=== PATIENT | female | born 1980 | race Caucasian/White ===

== ENCOUNTER 2024-12-02 00:18 | Day surgery (SDC) | payer OTHER, SELFPAY ==
[2024-11-24 11:39] VITALS: BMI 25.9
--- OUTSIDE RECORDS SUMMARY | 2024-12-02 00:20 | XMS_ITS | Clinical Summary ---
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 No 08/19/2023 Comments No Sex and Gender Information Value Date Recorded Sex Assigned at Not on file Legal Sex Female 2:44 PM CDT Gender Identity Not on file Sexual Orientation Not on file Last Filed Vital Signs Vital Sign Reading Time Taken Comments Blood Pressure 136/78 08/19/2023 9:50 AM WINTER SPORTS MANAGER Pulse 56 08/19/2023 9:55 AM WINTER SPORTS MANAGER Temperature 36.4 C (97.6 F) 08/19/2023 9:17 AM WINTER SPORTS MANAGER Respiratory Rate 14 08/19/2023 9:55 AM WINTER SPORTS MANAGER Oxygen Saturation 99% 08/19/2023 9:55 AM WINTER SPORTS MANAGER Inhaled Oxygen Concentration - - Weight 97.5 kg (215 lb) 08/19/2023 6:55 AM WINTER SPORTS MANAGER Height 172.7 cm (5' 8) 08/19/2023 6:55 AM WINTER SPORTS MANAGER Body Mass Index 32.69 08/19/2023 6:55 AM WINTER SPORTS MANAGER Plan of Treatment Health Maintenance Due Date Last Done Comments DTAP/TDAP/TD VACCINES (1 - Tdap) 1997 HEPATITIS B VACCINES (1 of 3 - 19+ 3-dose series) 1997 HPV/Cotest (21-29) 1999 CERVICAL CANCER SCREENING 01/02/2008 HPV/Cotest (30-65) 01/02/2008 PAP SMEAR 01/02/2008 COLORECTAL SCREENING 2023 Colorectal Cancer Screening 2023 FIT-DNA Q 3 years 2023 FIT/FOBT Q 1 year 2023 Flex Sig/CT Colonography Q 5 years 2023 INFLUENZA VACCINE (#1) 2024 BREAST CANCER SCREENING 06/14/2024 06/14/20 23, 05/06/2023 HPV VACCINES Aged Out No longer eligi ble based on patient's age to complete this topic Procedures Procedure Name Priority Date/Time Associated Diagnosis Comments MAMMO DIAG UNI RIGHT 3D DOLLY W OR WO CAD Stat 06/14/2023 8:09 AM WINTER SPORTS MANAGER Abnormal mammogram from Last 3 Months or Most Recently Relevant to Health Maintenance Results * (ABNORMAL) MAMMO DIAG UNI RIGHT 3D DOLLY W OR WO CAD (06/14/2023 8:09 AM WINTER SPORTS MANAGER) Anatomical Region Laterality Modality Breast Right Mammography 06/14/2023 8:09 AM WINTER SPORTS MANAGER Impressions 06/14/2023 3:44 PM WINTER SPORTS MANAGER IMPRESSION: 1. Suspicious right breast mass, 10:00 position 4 cm from nipple, which corresponds to architectural distortion mammographically. Ultrasound-guided core needle biopsy is recommended. Differential may include complex sclerosing lesion/radial scar however malignancy is not excluded. OVERALL FINAL ASSESSMENT: Suspicious. BI-RADS CATEGORY 4B: Moderate suspicion for malignancy. Patient was notified of findings and recommendations at time of exam. Patient scheduled for biopsy with nurse navigation prior to leaving department. DICTATION LOCATION: [facility] Narrative 06/14/2023 3:44 PM WINTER SPORTS MANAGER UNILATERAL DIGITAL DIAGNOSTIC RIGHT MAMMOGRAM WITH TOMOSYNTHESIS UTILIZING COMPUTER AIDED DETECTION LIMITED DIAGNOSTIC RIGHT BREAST ULTRASOUND EXAM DATE: 06/14/2023 8:09 AM TECHNIQUE: Right Full field ML with spot CC and MLO standard and tomosynthesis views with 3D reformats were obtained. Limited diagnostic right breast ultrasound Low Dose full field Digital Breast tomosynthesis examination was performed with 2D and 3D acquisitions. Examination is read in conjunction with computer aided detection. INDICATION: Abnormal screening. CLINICAL HISTORY: 43-year-old asymptomatic female. Patient was recalled from screening mammogram for further evaluation of architectural distortion in the upper outer right breast. COMPARISON: Recall from 05/06/2023 baseline mammogram. BREAST COMPOSITION: There are scattered areas of fibroglandular density. FINDINGS: Right mammogram: Additional images show persistence of architectural distortion in the upper outer quadrant of right breast. This spans approximately 1.7 cm mammographically, and is located middle depth, approximately 3-4 cm from the nipple. No concerning microcalcifications or suspicious findings elsewhere. CAD was used in interpretation. Right ultrasound: Sonographic images are targeted in the upper-outer quadrant. At the 10:00 position 4 cm from nipple there is an irregular hypoechoic antiparallel mass with indistinct margins and shadowing. This measures 0.6 x 1.1 x 0.5 cm. There is no significant vascularity. Sonographic images in the right axilla showed no pathologic adenopathy. Procedure Note Teodora Serrato MD - 06/14/2023 UNILATERAL DIGITAL DIAGNOSTIC RIGHT MAMMOGRAM WITH TOMOSYNTHESIS UTILIZING COMPUTER AIDED DETECTION LIMITED DIAGNOSTIC RIGHT BREAST ULTRASOUND EXAM DATE: 06/14/2023 8:09 AM TECHNIQUE: Right Full field ML with spot CC and MLO standard and tomosynthesis views with 3D reformats were obtained. Limited diagnostic right breast ultrasound Low Dose full field Digital Breast tomosynthesis examination was performed with 2D and 3D acquisitions. Examination is read in conjunction with computer aided detection. INDICATION: Abnormal screening. CLINICAL HISTORY: 43-year-old asymptomatic female. Patient was recalled from screening mammogram for further evaluation of architectural distortion in the upper outer right breast. COMPARISON: Recall from 05/06/2023 baseline mammogram. BREAST COMPOSITION: There are scattered areas of fibroglandular density. FINDINGS: Right mammogram: Additional images show persistence of architectural distortion in the upper outer quadrant of right breast. This spans approximately 1.7 cm mammographically, and is located middle depth, approximately 3-4 cm from the nipple. No concerning microcalcifications or suspicious findings elsewhere. CAD was used in interpretation. Right ultrasound: Sonographic images are targeted in the upper-outer quadrant. At the 10:00 position 4 cm from nipple there is an irregular hypoechoic antiparallel mass with indistinct margins and shadowing. This measures 0.6 x 1.1 x 0.5 cm. There is no significant vascularity. Sonographic images in the right axilla showed no pathologic adenopathy. IMPRESSION: 1. Suspicious right breast mass, 10:00 position 4 cm from nipple, which corresponds to architectural distortion mammographically. Ultrasound-guided core needle biopsy is recommended. Differential may include complex sclerosing lesion/radial scar however malignancy is not excluded. OVERALL FINAL ASSESSMENT: Suspicious. BI-RADS CATEGORY 4B: Moderate suspicion for malignancy. Patient was notified of findings and recommendations at time of exam. Patient scheduled for biopsy with nurse navigation prior to leaving department. DICTATION LOCATION: [facility] Makenna Santoyo FUNDING SPECIALIST MAMMO ORDERABLES Final Resul t from Last 3 Months or Most Recently Relevant to Health Maintenance Insurance [employer] [id number]
--- OUTSIDE RECORDS SUMMARY | 2024-12-02 00:20 | XMS_ITS | Clinical Summary ---
Author Organization [facility] Address [address] [place] [address] Care Team Providers Care Blue Line Operator Name Role Phone Thomas Christian Magda Unavailable Unavailable Source Comments [facility],non-owned Affiliates and Associated Physician Practices is amultiple site organization consisting of ambulatory clinics and hospital sitesin [place], [place], [place] and [place]. This disclosure is being madepursuant to the Care Everywhere program and may not contain all information available regarding this patient. Last updated 18.[facility] Active Problems Patient Care Coordination No te Formatting of this note migh t be different from the original. Order is not for additional testing Negative [id number] Problem Noted Date Diagnosed Date Advanced maternal age in 11/06/2013 Placenta previa without hemorrhage, antepartum 0 11/06/2013 Supervision of other high-risk 014 Overview (05/15/2015): Social History Tobacco Use Types Packs/Day Years Used Date Smoking Tobacco: Never Assessed Comments No Sex and Gender Information Value Date Recorded Sex Assigned at Not on file Legal Sex Female 6:31 AM PAVING CONTRACTOR Gender Identity Not on file Sexual Orientation Not on file Plan of Treatment Health Maintenance Due Date Last Done Comments COLOGUARD (AGES 45-75) - COL ON CA SCREENING 1978 COLON MONITORING 1978 COLONOSCOPY - COLON CA SCREENING 1978 CT COLONOGRAPHY - COLON CA SCREENING 1978 Colorectal Cancer Screening 1978 FIT - COLON CA SCREENING 1978 FLEX SIG - COLON CA SCREENING 1978 LIPID TESTING 1978 MAMMOGRAM 1978 HIV SCREENING 1993 HEPATITIS C SCREENING 12/28/1995 DTAP/TDAP/TD VACCINES (1 - Tdap) 1997 HEPATITIS B VACCINE (1 of 3 - 19+ 3-dose series) 1997 COVID-19 VACCINE (1 - 2023-2 5 season) 2024 DEPRESSION SCREENING 07/08/2024 INFLUENZA VACCINE (Season Ended) 2025 ZOSTER VACCINE (1 of 2) 01/02/2028 HIB VACCINE Aged Out No longer eligi ble based on patient's age to complete this topic HPV VACCINE Aged Out No longer eligi ble based on patient's age to complete this topic MENINGOCOCCAL (Group B) VACC INE SHARED DECISION-MAKING Aged Out No longer eligibl e based on patient's age to complete this topic MENINGOCOCCAL GROUPS A/C/Y/W VACCINE Aged Out No longer eligible b ased on patient's age to complete this topic PNEUMOCOCCAL VACCINE Aged Out No long er eligible based on patient's age to complete this topic Insurance [employer] Care Teams Blue Line Operator Relationship Specialty Start Date End Date Thomas Christian 11/09/13
[2024-12-02 11:40] VITALS: BP 144/94; PULSE 68; RESP 18; TEMP 36.7; O2SAT 100
[2024-12-02 11:43] LABS: BEDSIDEPREGUCG Negative (Negative)
[2024-12-02] MEDS: LACTATED RINGERS 1,000 ML 150 ML IV CONT (11:50)
--- NOTE | 2024-12-02 12:31 | P.PNAN_ITS ---
Anes - Initial Pre Proc Eval Procedure: Operation Date: 12/02/24 13:00 Proposed Procedures p Colonoscopy - Dre Nur MD Date/Time: 12/02/24 12:31 Surgeon: Dre Nur MD Pre Op Diagnosis: Other fecal abnormalities Patient Data Age: 44 Gender: F Height: 1.73 m Weight: 87.4 kg Last Vital Signs Temp 98.0 F 12/02/24 11:40 Pulse 68 12/02/24 11:40 Resp 18 12/02/24 11:40 BP 144/94 H 12/02/24 11:40 Pulse Ox 100 12/02/24 11:40 O2 Del Method Room Air 12/02/24 11:40 Allergies Allergy/AdvReac Type Severity Reaction Status Date / Time zolpidem Allergy Unknown Rash Verified 11/24/24 11:39 Home Medications ?Medication ?Instructions ?Recorded ?Confirmed ?Type No Home Medications 11/24/24 11/24/24 History Laboratory Tests 12/02/24 11:41 POC Urine HCG, Qual Negative (Negative) Patient hx anesthesia problems: none Family hx anesthesia problems: none Results Review: All pre-operative results and documents have been reviewed as part of the pre- operative evaluation. [facility] Family History Family History Other Diabetes mellitus Family history of cardiovascular disease Family history of malignant neoplasm Social History Social History Smoking status: Never smoker Alcohol intake: current Substance use type: does not use Living arrangements: with family Spiritual care concerns: No Anes - Eval Final PreProcedure Day of Procedure 12/02/24 12:31 Patient weight: overweight Lungs: normal air movement Airway: Mallampati scale class II Neurological: alert and oriented Last oral intake: >/= 8 hours ASA classification: I Emergent: no Anesthetic plan: proceed Anesthesia type and monitoring: general GIVS and standard monitoring Results Review: All pre-operative results and documents have been reviewed as part of the pre- operative evaluation. Healthy, BMI 29. Pt active w walking, no cp or sob. Informed Consent: The patient's anesthetic plan and its attendant risks and benefits were discussed with the patient/family/POA. Questions were solicited and answers provided to the satisfaction of the patient/family/POA.
--- NOTE | 2024-12-02 12:50 | PM.HPGS ---
History of Present Illness History of Present Illness Consent: Risks, benefits, and alternatives have been discussed and questions answered. Patient agrees to proceed with procedure. Chief complaint: cologuard Narrative: Yanci Allen is a 44 year old female here for first screening colonoscopy, had + cologuard Review of Systems Review of Systems: All systems reviewed & are unremarkable except as noted in HPI and below PMFSH Past Medical History Medical History (Updated 12/02/24 @ 12:52 by Dre Nur MD) Positive colorectal cancer screening using Cologuard test Family History Family History Other Diabetes mellitus Family history of cardiovascular disease Family history of malignant neoplasm Social History Social History Smoking status: Never smoker Alcohol intake: current Substance use type: does not use Living arrangements: with family Spiritual care concerns: No Meds Home Medications and Allergies Home Medications ?Medication ?Instructions ?Recorded ?Confirmed ?Type No Home Medications 11/24/24 11/24/24 History Allergies Allergy/AdvReac Type Severity Reaction Status Date / Time zolpidem Allergy Unknown Rash Verified 11/24/24 11:39 Vital Signs Vital Signs - 24 hr 12/02/24 11:40 Temperature 98.0 F Pulse Rate 68 Respiratory Rate 18 Blood Pressure 144/94 H Pulse Oximetry 100 Oxygen Delivery Room Air Exam Const: General: comfortable and no acute distress HENMT: Face/Nose/Sinus: Normal nares present Eyes: General: appearance normal, both eyes and all related structures Neck: Neck: no JVD Resp: Auscultation: clear to auscultation bilaterally Cardio: Rate: regular rate Rhythm: regular rhythm GI: Inspection: non-distended GI Palp: Yes Soft to palpation Skin: General skin exam: normal color Neuro: General: gait normal Speech: normal speech Extrem: General: normal to inspection Psych: Mental Status: mental status grossly normal Assessment and Plan Assessment and plan (1) Positive colorectal cancer screening using Cologuard test: Code(s): R19.5 - Other fecal abnormalities Status: Acute Assessment and Plan: colonoscopy
[2024-12-02 13:07] VITALS: BP 130/76; PULSE 84; RESP 19; O2SAT 100
[2024-12-02 13:17] VITALS: BP 121/87; PULSE 70; RESP 16; O2SAT 100
[2024-12-02 13:27] VITALS: BP 123/85; PULSE 66; RESP 19; O2SAT 100
== END 2024-12-02 13:30 | disposition home or self-care (01) ==
PROVIDERS: Anesthesiology; PCP Pediatrics; Referring Provider Nurse Practitioner Family; Visit Provider Internal Medicine Gastroenterology
PROC: 0DJD8ZZ Inspection of Lower Intestinal Tract, Via Natural or Artificial Opening Endoscopic (ICD-10-PCS; CPT 45378; principal; 2024-12-02 13:00)
DX: K64.8 Other hemorrhoids (principal); Z80.9 Family history of malignant neoplasm, unspecified; Z82.49 Family history of ischemic heart disease and other diseases of the circulatory system
CPT/HCPCS: 45378; J2003; J2704; J7120